=== PATIENT | male | born 1955 | race African-American/Black ===

== ENCOUNTER 2016-10-03 12:13 | Inpatient (IN) | payer MEDICAID ==
[~2016-10-03] VITALS: Ht 165.1 cm; Wt 49.9 kg
[~2016-10-03 12:13] MED LIST: ALBUTEROL SULF8.5 GM INH; AZITHROMYCIN250 MG PO; TRAMADOL HCL50 MG ORAL; TYLENOL650 MG/20. ORAL; ZITHROMAX250 MG ORAL
[2016-10-03 12:53] VITALS: BP 119/68
--- NOTE | 2016-10-03 13:27 | Emergency Room Report ---
History of Present Illness General Chief Complaint: Malfunctioning Gastric Tube Source: Patient Present Illness HPI Patient has had a oral lesion/mass Has been on hospice and out patient care Last Wednesday the patient's feeding tube had dislodged There was apparently a Lopez catheter in place However he reports that that was also dislodged this morning approximately 8 hours ago Patient takes very minimal oral intake with liquids But cannot tolerate any other oral intake Denies any chest pain or shortness of breath he does feel mildly weak Denies any back or flank pain denies any vomiting or diarrhea Allergies: Coded Allergies: No Known Allergies (Unverified , 02/06/14) Patient History Past Medical History: see triage record Pertinent Family History: none Reviewed Nursing Documentation: PMH: Agreed, PSxH: Agreed Nursing Documentation-PMH Past Medical History: No History, Except For Hx Cardiac Problems: No Hx Hypertension: Yes Hx Pacemaker: No Hx Asthma: Yes Hx COPD: No Hx Diabetes: No Hx Cancer: Yes - mouth cancer Hx Gastrointestinal Problems: No Hx Dialysis: No Hx Neurological Problems: No Hx Cerebrovascular Accident: No Hx Seizures: No Review of Systems All Other Systems: negative except mentioned in HPI Physical Exam Vital Signs Date Time Temp Pulse Resp B/P Pulse Ox O2 Delivery O2 Flow Rate FiO2 10/03/16 12:35 98.2 91 18 125/76 100 Room Air Sp02 EP Interpretation: reviewed, normal General Appearance: well appearing, no apparent distress Head: normocephalic, atraumatic Eyes: bilateral eye EOMI, bilateral eye PERRL ENT: hearing grossly normal, TMs + canals normal, other - Patient has a tongue mass, obstructing the oral mucosa, otherwise no signs of any stridor or airway pathology Neck: full range of motion, supple, no meningismus, no bony tend Respiratory: lungs clear, normal breath sounds, no rhonchi, no respiratory distress, no retraction, no accessory muscle use Cardiovascular #1: normal peripheral pulses, regular rate, rhythm, no edema, no gallop, no JVD, no murmur Gastrointestinal: normal bowel sounds, non tender, soft, no mass, no organomegaly, non-distended, no guarding, no hernia, no pulsatile mass, no rebound, other - There is evidence of a previous stoma in the left upper abdominal quadrant, the area appears closed and scabbed over, evidence of previous abdominal surgery Genitourinary: no CVA tenderness Musculoskeletal: normal inspection Neurologic: oriented x3, responsive, heel nail rasper III-XII nml as tested, motor strength/ tone normal, sensory intact Psychiatric: mood/affect normal Skin: normal color, no rash, warm/dry, palpation normal Lymphatic: normal inspection, no adenopathy Medical Decision Making Diagnostic Impression: Primary Impression: Malfunction of gastrostomy tube Additional Impressions: Malfunction of percutaneous endoscopic gastrostomy (PEG) tube Tongue mass ER Course Given the patient's presentation initial attempt at replacement of the feeding tube was made however the stoma appears to have closed Patient had baseline blood work obtained which or appropriate he is unable to take any oral intake at this time and requires more urgent feeding tube replacement Patient was admitted for further inpatient care Labs Test 10/03/16 13:25 White Blood Count 9.9 K/UL (4.8-10.8) Red Blood Count 5.13 M/UL (4.70-6.10) Hemoglobin 13.1 G/DL (14.2-18.0) Hematocrit 42.3 % (42.0-52.0) Mean Corpuscular Volume 82 FL (80-99) Mean Corpuscular Hemoglobin 25.5 PG (27.0-31.0) Mean Corpuscular Hemoglobin Concent 30.9 G/DL (32.0-36.0) Red Cell Distribution Width 14.9 % (11.6-14.8) Platelet Count 318 K/UL (150-450) Mean Platelet Volume 7.7 FL (6.5-10.1) Neutrophils (%) (Auto) 78.8 % (45.0-75.0) Lymphocytes (%) (Auto) 12.8 % (20.0-45.0) Monocytes (%) (Auto) 6.0 % (1.0-10.0) Eosinophils (%) (Auto) 0.9 % (0.0-3.0) Basophils (%) (Auto) 1.4 % (0.0-2.0) Prothrombin Time 10.0 SEC (9.30-11.50) Prothromb Time International Ratio 1.0 (0.9-1.1) Activated Partial Thromboplast Time 29 SEC (23-33) Sodium Level 138 mEQ/L (135-145) Potassium Level 4.2 mEQ/L (3.4-4.9) Chloride Level 97 mEQ/L (98-107) Carbon Dioxide Level 26 mEQ/L (20-30) Anion Gap 15 (5-15) Blood Urea Nitrogen 17 mg/dL (7-23) Creatinine 1.0 mg/dL (0.7-1.2) Estimat Glomerular Filtration Rate > 60 mL/min (>60) Glucose Level 99 mg/dL (74-106) Calcium Level 9.8 mg/dL (8.6-10.2) Last Vital Signs Date Time Temp Pulse Resp B/P Pulse Ox O2 Delivery O2 Flow Rate FiO2 10/03/16 12:53 98.2 76 12 119/68 96 Room Air Status: improved Disposition: ADMITTED INPATIENT Condition: Serious Referrals: NOT CHOSEN IPA/,REFERRING (PCP) CIERA CASTILLO D.O. Oct 03, 2016 13:27
[2016-10-03] MEDS ORDERED: Ibuprofen Susp 100mg/5ml ORAL ONE (13:30)
[2016-10-03 13:43] LABS: BASOPHILS % (AUTO) 1.4 % (0.0-2.0); EOSINOPHILS % (AUTO) 0.9 % (0.0-3.0); LYMPHOCYTES % (AUTO) 12.8 % (20.0-45.0); MEAN CORPUSCULAR HEMOGLOBIN 25.5 PG (27.0-31.0); MEAN CORPUSCULAR HGB CONC 30.9 G/DL (32.0-36.0); MEAN CORPUSCULAR VOLUME 82 FL (80-99); MEAN PLATELET VOLUME 7.7 FL (6.5-10.1); NEUTROPHILS % (AUTO) 78.8 % (45.0-75.0); PLATELET COUNT 318 K/UL (150-450); RED BLOOD COUNT 5.13 M/UL (4.70-6.10); RED CELL DISTRIBUTION WIDTH 14.9 % (11.6-14.8); WHITE BLOOD COUNT 9.9 K/UL (4.8-10.8)
[2016-10-03 14:10] LABS: ANION GAP 15 (5-15); CALCIUM 9.8 mg/dL (8.6-10.2); CARBON DIOXIDE 26 mEQ/L (20-30); CHLORIDE 97 mEQ/L (98-107); GLOMERULAR FILTRATION RATE > 60 mL/min (>60); HEMOLYSIS 15; POTASSIUM 4.2 mEQ/L (3.4-4.9); SODIUM 138 mEQ/L (135-145)
[2016-10-03] MEDS ORDERED: UNOBMED (14:38)
[2016-10-03 14:40] VITALS: BP 110/64
[2016-10-03 16:02] VITALS: BP 109/58
[2016-10-03] MEDS ORDERED: Milk of Magnesia 30ml Ud ORAL PRN (17:15)
[2016-10-03] MEDS ORDERED: Zolpidem 5mg tab ORAL PRN (17:15)
[2016-10-03] MEDS: Heparin 5000 units/ml inj SUBQ SCH (20:45)
[2016-10-03 21:02] VITALS: BP 119/73
[2016-10-04] VITALS: BP 132/75
[2016-10-04 04:00] VITALS: BP 158/93
--- NOTE | 2016-10-04 07:34 | General Progress Note ---
Assessment/Plan Problem List: (1) Malfunction of percutaneous endoscopic gastrostomy (PEG) tube ICD Codes: K94.23 - Gastrostomy malfunction SNOMED: 347754477 (2) Mass of throat ICD Codes: R22.1 - Localized swelling, mass and lump, neck SNOMED: 44720124, 781645943 (3) Cachexia ICD Codes: R64 - Cachexia SNOMED: 504810020 (4) Dehydration ICD Codes: E86.0 - Dehydration SNOMED: 75156174 Assessment/Plan needs EGD and GT placement plan for tomorrow Subjective ROS Limited/Unobtainable: Yes Allergies: Coded Allergies: No Known Allergies (Unverified , 02/06/14) Subjective no event Objective Last 24 Hour Vital Signs Date Time Temp Pulse Resp B/P Pulse Ox O2 Delivery O2 Flow Rate FiO2 10/04/16 04:00 97.9 75 20 158/93 98 Room Air 10/04/16 00:00 97.7 74 20 132/75 98 Room Air 10/03/16 21:02 97.9 87 18 119/73 98 Room Air 10/03/16 16:02 97.5 77 20 109/58 95 Room Air 10/03/16 14:51 98.2 77 12 110/64 100 Room Air 10/03/16 14:40 98.2 77 12 110/64 100 Room Air 10/03/16 14:03 98.2 10/03/16 12:53 98.2 76 12 119/68 96 Room Air 10/03/16 12:35 98.2 91 18 125/76 100 Room Air Intake and Output 10/03/16 10/04/16 19:00 07:00 Intake Total 100 ml 1700 ml Balance 100 ml 1700 ml Intake Oral 0 ml 600 ml IV Total 100 ml 1100 ml # Voids 4 Laboratory Tests 10/03/16 13:25: White Blood Count 9.9, Red Blood Count 5.13, Hemoglobin 13.1L, Hematocrit 42.3, Mean Corpuscular Volume 82, Mean Corpuscular Hemoglobin 25.5L, Mean Corpuscular Hemoglobin Concent 30.9L, Red Cell Distribution Width 14.9H, Platelet Count 318 , Mean Platelet Volume 7.7, Neutrophils (%) (Auto) 78.8H, Lymphocytes (%) (Auto ) 12.8L, Monocytes (%) (Auto) 6.0, Eosinophils (%) (Auto) 0.9, Basophils (%) ( Auto) 1.4, Prothrombin Time 10.0, Prothromb Time International Ratio 1.0, Activated Partial Thromboplast Time 29, Sodium Level 138, Potassium Level 4.2, Chloride Level 97L, Carbon Dioxide Level 26, Anion Gap 15, Blood Urea Nitrogen 17, Creatinine 1.0, Estimat Glomerular Filtration Rate > 60, Glucose Level 99, Calcium Level 9.8 Height (Feet): 5 Height (Inches): 1.00 Weight (Pounds): 110 General Appearance: no apparent distress EENT: normal ENT inspection Neck: supple Cardiovascular: normal rate Respiratory/Chest: lungs clear Abdomen: normal bowel sounds, non tender, soft Extremities: non-tender BRITTNEY AGARWAL Oct 04, 2016 07:34
[2016-10-04 08:39] VITALS: BP 141/73
[2016-10-04] MEDS: Heparin 5000 units/ml inj SUBQ SCH ×2 (08:47→20:06)
[2016-10-04 12:05] VITALS: BP 113/65
[2016-10-04 16:32] VITALS: BP 127/68
[2016-10-04] MEDS: Norco 10mg/325mg tab ORAL PRN (19:31)
[2016-10-04 20:08] VITALS: BP 121/70
[2016-10-05] VITALS: BP 103/65
--- NOTE | 2016-10-05 02:08 | History and Physical Report ---
DATE OF ADMISSION: 10/03/2016 REASON FOR ADMISSION: Malfunctioning G-tube. HISTORY OF PRESENT ILLNESS: The patient is a 61-year-old unfortunate male with head and neck cancer. The patient apparently has has been in the hospice, but the feeding tube got dislodged. The patient apparently has a Lopez catheter in place. The patient has minimal p.o. intake. PAST MEDICAL HISTORY: As above. Neck cancer, hypertension, and asthma. MEDICATIONS: Reviewed. ALLERGIES: Reviewed. SOCIAL HISTORY: The patient is single and employed at present. PHYSICAL EXAMINATION: GENERAL: The patient is an ill-appearing male. VITAL SIGNS: Blood pressure 141/73, pulse 78, respirations 14, temperature 97.2 degrees, and O2 saturation 100%. HEENT: Fairly negative. NECK: Supple. No adenopathy. LUNGS: Moderate breath sounds. CARDIAC: S1 and S2. Regular rate and rhythm. ABDOMEN: Soft and nontender. Previous stoma noted in the left upper quadrant area. EXTREMITIES: No cyanosis. No clubbing. No edema. NEUROLOGIC: Diffusely weak. LABORATORY DATA: Reviewed. CBC fairly negative. Electrolytes fairly negative. IMPRESSION: 1. Head and neck cancer. 2. Dislodged gastrostomy tube. 3. Ataxia. 4. Dehydration. RECOMMENDATIONS: 1. GI evaluation. 2. Proceed with G-tube placement. 3. Hydration for now. 4. P.o. intake as tolerated and discharge to hospice once cleared. Rick Cardoso M.D. DR: MARKEL JOB#: [id number] CC:
[2016-10-05 04:57] VITALS: BP 129/67
[2016-10-05 07:22] LABS: EOSINOPHILS % (AUTO) 1.7 % (0.0-3.0); LYMPHOCYTES % (AUTO) 20.5 % (20.0-45.0); MEAN CORPUSCULAR HGB CONC 29.6 G/DL (32.0-36.0); MEAN CORPUSCULAR VOLUME 84 FL (80-99); MEAN PLATELET VOLUME 6.6 FL (6.5-10.1); MONOCYTES % (AUTO) 8.8 % (1.0-10.0); NEUTROPHILS % (AUTO) 66.9 % (45.0-75.0); PLATELET COUNT 280 K/UL (150-450); RED BLOOD COUNT 4.47 M/UL (4.70-6.10); RED CELL DISTRIBUTION WIDTH 15.5 % (11.6-14.8); WHITE BLOOD COUNT 6.8 K/UL (4.8-10.8)
[2016-10-05 07:30] LABS: INR 1.1 (0.9-1.1); PROTHROMBIN TIME 11.2 SEC (9.30-11.50)
[2016-10-05 07:43] LABS: ANION GAP 14 (5-15); CALCIUM 8.3 mg/dL (8.6-10.2); CARBON DIOXIDE 22 mEQ/L (20-30); CHLORIDE 100 mEQ/L (98-107); CREATININE 0.8 mg/dL (0.7-1.2); GLOMERULAR FILTRATION RATE > 60 mL/min (>60); HEMOLYSIS 47; POTASSIUM 4.6 mEQ/L (3.4-4.9); SODIUM 136 mEQ/L (135-145)
[2016-10-05 08:00] VITALS: BP 120/67
--- NOTE | 2016-10-05 08:20 | General Progress Note ---
Assessment/Plan Assessment/Plan IMPRESSION: 1. Head and neck cancer. 2. Dislodged gastrostomy tube. 3. Ataxia. 4. Dehydration. PLAN GT hydration pain meds ? resume hospice impression, plan, and exam edited and reviewed in detail care discussed with RN Subjective Allergies: Coded Allergies: No Known Allergies (Unverified , 02/06/14) Subjective co pain poor po Objective Last 24 Hour Vital Signs Date Time Temp Pulse Resp B/P Pulse Ox O2 Delivery O2 Flow Rate FiO2 10/05/16 04:57 97.5 68 18 129/67 100 Room Air 10/05/16 00:00 97.7 65 18 103/65 100 Room Air 10/04/16 20:08 97.7 68 18 121/70 100 Room Air 10/04/16 16:32 97.8 74 15 127/68 100 Room Air 10/04/16 12:05 97.3 74 15 113/65 100 10/04/16 08:39 97.2 78 14 141/73 100 Room Air Intake and Output 10/04/16 10/05/16 19:00 07:00 Intake Total 1600 ml 1240 ml Balance 1600 ml 1240 ml Intake Oral 500 ml 240 ml IV Total 1100 ml 1000 ml # Voids 4 1 Laboratory Tests 10/05/16 06:55: White Blood Count 6.8, Red Blood Count 4.47L, Hemoglobin 11.2L, Hematocrit 37.8L , Mean Corpuscular Volume 84, Mean Corpuscular Hemoglobin 25.0L, Mean Corpuscular Hemoglobin Concent 29.6L, Red Cell Distribution Width 15.5H, Platelet Count 280, Mean Platelet Volume 6.6, Neutrophils (%) (Auto) 66.9, Lymphocytes (%) (Auto) 20.5, Monocytes (%) (Auto) 8.8, Eosinophils (%) (Auto) 1.7, Basophils (%) (Auto) 2.0, Prothrombin Time 11.2, Prothromb Time International Ratio 1.1, Activated Partial Thromboplast Time 33, Sodium Level 136, Potassium Level 4.6, Chloride Level 100, Carbon Dioxide Level 22, Anion Gap 14, Blood Urea Nitrogen 14, Creatinine 0.8, Estimat Glomerular Filtration Rate > 60, Glucose Level 85, Calcium Level 8.3L Height (Feet): 5 Height (Inches): 1.00 Weight (Pounds): 110 Objective GENERAL: The patient is an ill-appearing male. HEENT: Fairly negative. NECK: Supple. No adenopathy. LUNGS: Moderate breath sounds. CARDIAC: S1 and S2. Regular rate and rhythm. ABDOMEN: Soft and nontender. Previous stoma noted in the left upper quadrant area. EXTREMITIES: No cyanosis. No clubbing. No edema. NEUROLOGIC: Diffusely weak. reviewed and edited HENRRY SLATER Oct 05, 2016 08:20
[2016-10-05] MEDS: Heparin 5000 units/ml inj SUBQ SCH ×2 (09:00→20:29)
[2016-10-05 12:00] VITALS: BP 108/64
[2016-10-05 16:00] VITALS: BP 126/74
[2016-10-05] MEDS: Norco 10mg/325mg tab ORAL PRN ×2 (16:40→22:36)
[2016-10-05 20:00] VITALS: BP 128/59
--- NOTE | 2016-10-05 20:10 | General Progress Note ---
Assessment/Plan Assessment/Plan Assessment - H&N CA - Dysphagia - dislodged GT - Poor Px Recommendation - po liquids OK - PEG in am Subjective Allergies: Coded Allergies: No Known Allergies (Unverified , 02/06/14) Subjective feels Ok wants to drink liquids today until PEG placed agreeable to PEG wants to place in am Objective Last 24 Hour Vital Signs Date Time Temp Pulse Resp B/P Pulse Ox O2 Delivery O2 Flow Rate FiO2 10/05/16 16:00 97.6 76 20 126/74 97 Room Air 10/05/16 12:00 98.0 70 20 108/64 100 Room Air 10/05/16 08:00 97.8 64 20 120/67 100 Room Air 10/05/16 04:57 97.5 68 18 129/67 100 Room Air 10/05/16 00:00 97.7 65 18 103/65 100 Room Air 10/04/16 20:08 97.7 68 18 121/70 100 Room Air Intake and Output 10/04/16 10/05/16 19:00 07:00 Intake Total 1600 ml 1240 ml Balance 1600 ml 1240 ml Intake Oral 500 ml 240 ml IV Total 1100 ml 1000 ml # Voids 4 1 Laboratory Tests 10/05/16 06:55: White Blood Count 6.8, Red Blood Count 4.47L, Hemoglobin 11.2L, Hematocrit 37.8L , Mean Corpuscular Volume 84, Mean Corpuscular Hemoglobin 25.0L, Mean Corpuscular Hemoglobin Concent 29.6L, Red Cell Distribution Width 15.5H, Platelet Count 280, Mean Platelet Volume 6.6, Neutrophils (%) (Auto) 66.9, Lymphocytes (%) (Auto) 20.5, Monocytes (%) (Auto) 8.8, Eosinophils (%) (Auto) 1.7, Basophils (%) (Auto) 2.0, Prothrombin Time 11.2, Prothromb Time International Ratio 1.1, Activated Partial Thromboplast Time 33, Sodium Level 136, Potassium Level 4.6, Chloride Level 100, Carbon Dioxide Level 22, Anion Gap 14, Blood Urea Nitrogen 14, Creatinine 0.8, Estimat Glomerular Filtration Rate > 60, Glucose Level 85, Calcium Level 8.3L Height (Feet): 5 Height (Inches): 1.00 Weight (Pounds): 110 Objective Thin NCAT hoarse voice Coarse BS RR Soft NT ND no edema non focal PATEL JASMINE Oct 05, 2016 20:10
[2016-10-06] VITALS: BP 109/67
[2016-10-06 04:00] VITALS: BP 116/66
[2016-10-06] MEDS ORDERED: ceFAZolin sod 1 GM in D5W 55 ML IVPB ONE (06:00)
[2016-10-06 08:00] VITALS: BP 116/63
--- NOTE | 2016-10-06 08:11 | General Progress Note ---
Assessment/Plan Assessment/Plan Assessment - H&N CA - now advanced - Dysphagia - dislodged GT which was placed 5 mo ago when tumor less advanced - Per anesthesia service, would need placement in OR with ENT standby for possible emergency trach - Can ask radiology if can be placed by IR - but that procedure requires pre- procedure NGT, which carries same airway risk issues Recommendation - po liquids OK - will discuss with IR - Hospice planning may be the best option at this time Subjective Allergies: Coded Allergies: No Known Allergies (Unverified , 02/06/14) Subjective Seen in GI lab NPO for procedure Discussed with anesthesia service Patient with difficult airway - procedure cancelled per anesthesia All explained to patient Objective Last 24 Hour Vital Signs Date Time Temp Pulse Resp B/P Pulse Ox O2 Delivery O2 Flow Rate FiO2 10/06/16 04:00 97.2 58 18 116/66 100 Room Air 10/06/16 00:00 97.5 62 18 109/67 99 Room Air 10/05/16 20:00 97.0 64 18 128/59 100 Room Air 10/05/16 16:00 97.6 76 20 126/74 97 Room Air 10/05/16 12:00 98.0 70 20 108/64 100 Room Air Intake and Output 10/05/16 10/06/16 19:00 07:00 Intake Total 600 ml 750 ml Balance 600 ml 750 ml IV Total 600 ml 750 ml # Voids 3 Height (Feet): 5 Height (Inches): 5.00 Weight (Pounds): 110 Objective Thin NCAT hoarse voice Coarse BS RR Soft NT ND no edema non focal PATEL JASMINE Oct 06, 2016 08:11
--- NOTE | 2016-10-06 08:42 | General Progress Note ---
Assessment/Plan Assessment/Plan IMPRESSION: 1. Head and neck cancer. 2. Dislodged gastrostomy tube. 3. Ataxia. 4. Dehydration. PLAN GT needed hydration for now pain meds patient does not want hospice wants to go home impression, plan, and exam edited and reviewed in detail care discussed with RN Subjective Allergies: Coded Allergies: No Known Allergies (Unverified , 02/06/14) Subjective co pain poor po GI noted Objective Last 24 Hour Vital Signs Date Time Temp Pulse Resp B/P Pulse Ox O2 Delivery O2 Flow Rate FiO2 10/06/16 04:00 97.2 58 18 116/66 100 Room Air 10/06/16 00:00 97.5 62 18 109/67 99 Room Air 10/05/16 20:00 97.0 64 18 128/59 100 Room Air 10/05/16 16:00 97.6 76 20 126/74 97 Room Air 10/05/16 12:00 98.0 70 20 108/64 100 Room Air Intake and Output 10/05/16 10/06/16 19:00 07:00 Intake Total 600 ml 750 ml Balance 600 ml 750 ml IV Total 600 ml 750 ml # Voids 3 Height (Feet): 5 Height (Inches): 5.00 Weight (Pounds): 110 Objective GENERAL: The patient is an ill-appearing male. HEENT: Fairly negative. NECK: Supple. No adenopathy. LUNGS: Moderate breath sounds. CARDIAC: S1 and S2. Regular rate and rhythm. ABDOMEN: Soft and nontender. Previous stoma noted in the left upper quadrant area. EXTREMITIES: No cyanosis. No clubbing. No edema. NEUROLOGIC: Diffusely weak. reviewed and edited HENRRY SLATER Oct 06, 2016 08:42
[2016-10-06] MEDS: Norco 10mg/325mg tab ORAL PRN (08:55)
[2016-10-06] MEDS: Heparin 5000 units/ml inj SUBQ SCH (09:01)
[2016-10-06] MEDS ORDERED: Tubing IV Secondary IV ONE (11:25)
--- NOTE | 2016-10-06 11:27 | Operative Note - Dictated ---
DATE OF OPERATION: 10/06/2016 DICTATION CANCELLED Remedios Pan M.D. DR: Lisa JOB#: [id number] CC:
--- NOTE | 2016-10-07 13:38 | Discharge Summary ---
Discharge Summary Hospital Course Date of Admission Oct 03, 2016 at 13:20 Date of Discharge Oct 06, 2016 at 11:26 Admitting Diagnosis dehydration, g tube malfunction HPI Edgar Sanford is a 61 year old male who was admitted on Oct 03, 2016 at 13:20 for Dehyration, G Tube Mlfunction Hospital Course dc summary dictated #[id number] Discharge Condition Upon Discharge: stable Discharge Disposition Patient left against medical advise Discharge Diagnoses: Discharge Instructions Discharge Instructions Special Instructions I have been assigned to complete a D/C Summary on this account. I was not involved in the patient management Carola Adhikari NP ([place]) Oct 07, 2016 13:38
--- NOTE | 2016-10-08 15:47 | Discharge Summary 2 SIG ---
DATE OF ADMISSION: 10/03/2016 DATE OF SIGNING AGAINST MEDICAL ADVICE: 10/06/2016 REASON FOR ADMISSION: 61-year-old male with history of head and neck CA , who had been under hospice services came to emergency room since he got dislodged G-tube. The patient had a minimal p.o. intake. He came in with signs of dehydration and admitted for repair and replacement of G-tube. ADMITTING DIAGNOSES: 1. Dislodged gastrostomy tube. 2. History of head and neck cancer. 3. Dehydration. 4. Dysphagia. HOSPITAL COURSE: The patient admitted. GI consult was requested. GI seen the patient. GI cleared for p.o. intake as tolerated. IV fluids started for intravenous hydration. G-tube placement was scheduled for 10/06/2016. Per Anesthesia, the patient needs G-tube placement in operating room with ENT standing by for possible emergency tracheostomy. Apparently, this G-tube was placed about five months ago when tumor was less advanced and currently tumor advanced. It is not safe to place a G-tube in the GI lab or by Interventional Radiology. If patient decides, he will need surgical placement of G tube. The best option due to advanced tumor and poor overall prognosis. likely will be hospice services. DVT prophylaxis provided. Fall precaution provided. The patient decided to sign against medical advice. Risks and consequences of signing AMA discussed with the patient. The patient insisted on signing against medical advice, did not wait for Dr. Cardoso to call back. FINAL DIAGNOSES: 1. Dislodged gastrostomy tube. 2. Advanced head and neck cancer. 3. Dysphagia. 4. Dehydration. 5. Ataxia. Rick Cardoso M.D. I have been assigned to dictate discharge summary on this account and I was not involved in the patient's management. Carola KempSamaritan Medical CenterKika, N.P. DR: BERNADINE JOB#: [id number] CC: YUNIEL
== END 2016-10-06 11:26 | disposition left against medical advice (07) | DRG 252 ==
LOC: EMR 12:57 → 4E 13:20 → EDBEDREQ 14:22
DX: K94.23 Gastrostomy malfunction (principal); R64 Cachexia; Z43.1 Encounter for attention to gastrostomy; Z51.5 Encounter for palliative care; E86.0 Dehydration; I10 Essential (primary) hypertension; C76.0 Malignant neoplasm of head, face and neck; Z68.20 Body mass index [BMI] 20.0-20.9, adult; R27.0 Ataxia, unspecified; J45.909 Unspecified asthma, uncomplicated; R13.10 Dysphagia, unspecified
CPT/HCPCS: 36415; 80048; 85025; 85610; 85730; 87081